=== PATIENT | male | born 2000 ===

== ENCOUNTER 2018-07-29 22:23 | Emergency (ER) | payer SELFPAY ==
[2018-07-29 22:27] VITALS: BP 124/66; RESP 16; TEMP 98.2; O2SAT 100
[2018-07-29] MEDS ORDERED: Lidocaine 2% w Epi 1:100,000 Inj IJ STA (23:25)
[2018-07-29] MEDS ORDERED: Lidocaine 1% w Epi 1:100,000 Inj ONE (23:39)
[2018-07-30] MEDS ORDERED: Tdap Vaccine 0.5 ml Vial (10-64 yrs) IM ONE ×2 (00:35→00:48)
[2018-07-30] MEDS ORDERED: Lidocaine/Epi 1% 1:100000 20 ML IJ STA (00:36)
--- NOTE | 2018-07-30 01:04 | ED PDOC ---
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 Patient reports he was at work, walking down the steps carrying a lot of plates when he lost his balance and threw the plates in the air, hitting him in the face. He said there was a lot of blood and his bosses picked him up at brought him to the office. He was ambulatory and states he was dizziness and nauseous for 10-15 minutes. Does not remember when he received last tetanus. Denies vomiting, LOC, head injury. PMD: none - Fall Fall:Prior To Injury: Slipped Past Medical History Reviewed: Historical Data, Nursing Documentation, Vital Signs Vital Signs: Last Vital Signs Temp 98.2 F 07/29/18 22:24 Pulse 52 L 07/29/18 22:24 Resp 16 07/29/18 22:24 BP 124/66 07/29/18 22:24 Pulse Ox 100 07/29/18 22:24 - Medical History PMH: No Chronic Diseases Denies: Diabetes, Hepatitis, HIV, HTN, Seizures, Sexually Transmitted Disease - Surgical History Surgical History: No Surg Hx - Family History Family History: States: Unknown Family Hx - Home Medications Home Medications: Ambulatory Orders Medication Instructions Recorded Sulfamethoxazole/Trimethoprim 1 tab PO BID #14 tab 09/25/16 [Bactrim DS 800 mg-160 mg] - Allergies Allergies/Adverse Reactions: Allergies Allergy/AdvReac Type Severity Reaction Status Date / Time No Known Allergies Allergy Verified 07/29/18 22:24 Review of Systems ROS Statement: Except As Marked, All Systems Reviewed And Found Negative Skin: Positive for: Other (multiple facial abrasions and lacerations) Physical Exam - Reviewed Nursing Documentation Reviewed: Yes Vital Signs Reviewed: Yes - Physical Exam Appears: Positive for: Non-toxic, No Acute Distress Head Exam: Positive for: ATRAUMATIC, NORMAL INSPECTION (no swelling to posterior scalp), NORMOCEPHALIC Skin: Positive for: Normal Color (3 1/2 cm deep laceration to head; no observed bone, foreign body and active bleeding), Warm, Dry Eye Exam: Positive for: EOMI, PERRL, Other (superficial .5 mm vertical laceration above medial right eyebrow; abrasion over right zygoma) Neck: Positive for: Normal, Painless ROM, Supple (no c-spine tenderness) Cardiovascular/Chest: Positive for: Regular Rate, Rhythm. Negative for: Murmur Respiratory: Positive for: Normal Breath Sounds. Negative for: Respiratory Distress Gastrointestinal/Abdominal: Positive for: Normal Exam, Soft. Negative for: Tenderness Extremity: Positive for: Normal ROM (x 4). Negative for: Deformity Neurologic/Psych: Positive for: Alert, automatic dry starch operator II-XII (grossly intact), Oriented (x 3) - ECG O2 Sat by Pulse Oximetry: 100 (RA) Pulse Ox Interpretation: Normal Medical Decision Making Medical Decision Makin:09 A&P Laceration to face; large forehead laceration closed with sutures, superficial laceration closed with steri strips; abrasion cleaned and covered with bacitracin. Tetanus now UTD Due to symptoms of dizziness nausea and mechanism will obtain CT brain If CT brain is normal, patient to be d/c home; Wound care instructions provided Patient advised to return in 8-12 days for suture removal. 00:34 --Care endorsed to Dr. Canseco pending CT brain, reeval and final disposition. Scribe Attestation: Documented by Sherry Bardales acting as a scribe for Alba Angel MD Provider Scribe Attestation: All medical record entries made by the Scribe were at my direction and personally dictated by me. I have reviewed the chart and agree that the record accurately reflects my personal performance of the history, physical exam, medical decision making, and the department course for this patient. I have also personally directed, reviewed, and agree with the discharge instructions and disposition. Procedures - Laceration/Wound Repair Face Wound Length (cm): 3.5 Wound's Depth, Shape: into muscle Wound Explored: no foreign body removed Irrigated w/ Saline (ccs): 500 Anesthesia: 1% Lidocaine Wound Repaired With: Sutures, Steri-strips Suture Size/Type: 5:0, 4:0, nylon Deep Layer Suture Size/Type: 5:0 Number Deep Layer Sutures: 3 Wound Complexity: Intermediate Sterile Dressing Applied?: Yes Progress: 6 ccs of lidocaine with 1% epi used to anesthetize wound. 500 ccs of normal saline used to irrigate; 3 x 5:0 observable sutures placed deep in muscle for close approximation. 4 x 4.0 nylon sutures interrupted with good approximation with no active bleeding and complication. Performed in sterile manner, bacitracin was applied and wound dressed. Vertical superficial laceration was closed with steri strips. Disposition - Clinical Impression Clinical Impression: Acute pain due to trauma, Laceration of face - Patient ED Disposition Is Patient to be Admitted: Transfer of Care - Disposition Disposition: Transfer of Care Disposition Time: 00:34 Condition: IMPROVED Additional Instructions: Keep wound clean and dry. Follow up with primary doctor or this ER in 8 to 12 days for suture removal. Return to the emergency department if there is bleeding, pus, swelling, numbness, or other new symptoms. Instructions: Laceration Repair With Stitches (DC), Minor Head Injury Forms: [facility] (Egyptian), [facility] ED School/Work Excuse Patient Signed Over To: Matt Canseco Handoff Comments: pending CT brain, reeval and final disposition.
--- NOTE | 2018-07-30 01:19 | ED PDOC ---
- ECG O2 Sat by Pulse Oximetry: 100 (RA) Pulse Ox Interpretation: Normal Medical Decision Making Medical Decision Makin:34 --Care endorsed to this provider pending CT brain, reeval and final disposition. CT FINDINGS: Brain: No hemorrhage. No significant periventricular microischemic changes. No edema. Ventricles: Appropriate for patient's age. Bones/joints: No acute fracture. Soft tissues: No radiopaque foreign body. Sinuses: Minimal mucosal thickening in a few bilateral ethmoid air cells. Mastoid air cells: No mastoid effusion. IMPRESSION: 1. Sinusitis. 2. No acute CT intracranial abnormalities. 02:57 --Patient is stable and requires no further treatment at the ED. Return precautions provided. Scribe Attestation: Documented by Sherry Bardales acting as a scribe for Matt Canseco MD Provider Scribe Attestation: All medical record entries made by the Scribe were at my direction and personally dictated by me. I have reviewed the chart and agree that the record accurately reflects my personal performance of the history, physical exam, medical decision making, and the department course for this patient. I have also personally directed, reviewed, and agree with the discharge instructions and disposition. Disposition - Clinical Impression Clinical Impression: Acute pain due to trauma, Laceration of face - POA Present On Arrival: None - Disposition Disposition: Routine/Home Disposition Time: :57 Condition: IMPROVED Additional Instructions: Keep wound clean and dry. Follow up with primary doctor or this ER in 8 to 12 days for suture removal. Return to the emergency department if there is bleeding, pus, swelling, numbness, or other new symptoms. Instructions: Laceration Repair With Stitches (DC), Minor Head Injury Forms: [employer] (Mexican), [facility] ED School/Work Excuse
[2018-07-30 03:11] VITALS: PULSE 61
--- NOTE | 2018-07-30 11:07 | CT ---
Date of service: 07/30/2018 PROCEDURE: CT HEAD WITHOUT CONTRAST. HISTORY: head trauma with nausea/dizziness COMPARISON: 08/19/2012 TECHNIQUE: Axial computed tomography images were obtained through the head/brain without intravenous contrast. Radiation dose: Total exam DLP = 879 mGy-cm. This CT exam was performed using one or more of the following dose reduction techniques: Automated exposure control, adjustment of the mA and/or kV according to patient size, and/or use of iterative reconstruction technique. FINDINGS: HEMORRHAGE: No intracranial hemorrhage. BRAIN: No mass effect or edema. No atrophy or chronic microvascular ischemic changes. VENTRICLES: Unremarkable. No hydrocephalus. CALVARIUM: Unremarkable. PARANASAL SINUSES: Mild mucosal changes are seen in the sinuses. MASTOID AIR CELLS: Unremarkable as visualized. No inflammatory changes. OTHER FINDINGS: There is evidence of mildly prominent soft tissue in the posterior nasopharynx suggestive of adenoidal hypertrophy. This should be further correlated clinically. This was not mentioned on the preliminary report. IMPRESSION: Unremarkable CT scan of the brain without contrast. No evidence of intracranial hemorrhage or extra-axial collection. Adenoidal hypertrophy.
== END 2018-07-30 03:11 | disposition home or self-care (01) ==
LOC: H.ER 22:23
DX: S01.81XA Laceration without foreign body of other part of head, initial encounter (principal); G89.11 Acute pain due to trauma; J32.9 Chronic sinusitis, unspecified

== ENCOUNTER 2018-08-09 19:57 | Emergency (ER) | payer SELFPAY ==
[2018-08-09 20:14] VITALS: BP 110/67; PULSE 71; RESP 16; TEMP 98.4; O2SAT 99
--- NOTE | 2018-08-09 20:31 | ED PDOC ---
HPI: Wound Care - HPI Time Seen by Provider: 08/09/18 20:20 Chief Complaint (Nursing): Suture/Staple Removal Chief Complaint (Provider): Suture Removal History Per: Patient Exam Limitations: no limitations Onset/Duration Of Symptoms: Days (x10) Current Symptoms Are (Timing): Better Additional Complaint(s): 18 year old male presents to the ED for suture removal. Patient had four sutures placed ten days ago to his forehead and had no current complaints. PMD: none provided Past Medical History Reviewed: Historical Data, Nursing Documentation, Vital Signs Vital Signs: Last Vital Signs Temp 98.4 F 08/09/18 20:11 Pulse 71 08/09/18 20:11 Resp 16 08/09/18 20:11 BP 110/67 08/09/18 20:11 Pulse Ox 99 08/09/18 20:11 - Medical History PMH: No Chronic Diseases Denies: Diabetes, Hepatitis, HIV, HTN, Seizures, Sexually Transmitted Disease - Surgical History Surgical History: No Surg Hx - Family History Family History: States: Unknown Family Hx - Social History Current smoker - smoking cessation education provided: No Alcohol: None Drugs: Cannabis - Home Medications Home Medications: Ambulatory Orders Medication Instructions Recorded Sulfamethoxazole/Trimethoprim 1 tab PO BID #14 tab 09/25/16 [Bactrim DS 800 mg-160 mg] - Allergies Allergies/Adverse Reactions: Allergies Allergy/AdvReac Type Severity Reaction Status Date / Time No Known Allergies Allergy Verified 08/09/18 20:11 Review of Systems ROS Statement: Except As Marked, All Systems Reviewed And Found Negative Skin: Positive for: Other ([address] to forehead) Physical Exam - Reviewed Nursing Documentation Reviewed: Yes Vital Signs Reviewed: Yes - Physical Exam Appears: Positive for: No Acute Distress Head Exam: Positive for: ATRAUMATIC (4 intact sutures with well healed wound to right side of forehead, no surrounding erythema, swelling, or dehiscence), NORMOCEPHALIC Skin: Positive for: Normal Color, Warm, Dry Neurologic/Psych: Positive for: Alert, Oriented (x3) - ECG O2 Sat by Pulse Oximetry: 99 (RA) Pulse Ox Interpretation: Normal Medical Decision Making Medical Decision Making: Time: 2029 Initial Impression: suture removal Initial Plan: --All sutures removed without difficulty at this time. Pt stable for d/c. Scribe Attestation: Documented by Gia Brooks, acting as a scribe for Yves Reynaga PA-C Provider Scribe Attestation: All medical record entries made by the Scribe were at my direction and personally dictated by me. I have reviewed the chart and agree that the record accurately reflects my personal performance of the history, physical exam, medical decision making, and the department course for this patient. I have also personally directed, reviewed, and agree with the discharge instructions and disposition. Disposition - Clinical Impression Clinical Impression: Encounter for removal of sutures - Patient ED Disposition Is Patient to be Admitted: No - Disposition Referrals: [facility] [Outside] Disposition: Routine/Home Disposition Time: 20:31 Condition: STABLE Additional Instructions: LIS FOWLER, thank you for letting us take care of you today. Your provider was Porfirio Gracia MD and you were treated for SUTURE REMOVAL. The emergency medical care you received today was directed at your acute symptoms. If you were prescribed any medication, please fill it and take as directed. It may take several days for your symptoms to resolve. Return to the Emergency Department if your symptoms worsen, do not improve, or if you have any other problems. Please contact your doctor or call one of the physicians/clinics you have been referred to that are listed on the Patient Visit Information form that is included in your discharge packet. Bring any paperwork you were given at discharge with you along with any medications you are taking to your follow up visit. Our treatment cannot replace ongoing medical care by a primary care provider outside of the emergency department. Thank you for allowing the [facility] team to be part of your care today. If you had an X-Ray or CT scan: A Radiologist will review the ED reading if any change in treatment is needed we will contact you. If you had a blood, urine, or wound culture: It will take several days for the results, if any change in treatment is needed we will contact you. If you had an STI test: It will take 48 hours for the results. Please call after 1 week if you have not heard back. Instructions: Stitches Removal Forms: [email or web address] (Peruvian)
== END 2018-08-09 20:37 | disposition home or self-care (01) ==
LOC: H.ER 19:57
DX: Z48.02 Encounter for removal of sutures (principal)